=== PATIENT | female | born 1985 | race Caucasian/White ===

== ENCOUNTER 2024-01-23 12:35 | Emergency (ER) | payer OTHER ==
[~2024-01-23] VITALS: Ht 165.1 cm; Wt 135.5 kg
[~2024-01-23 12:35] MED LIST: DECADRON 4MG TAB4 MG PO; DOXYCYCLINE 10100 MG PO; IPRATROPIUM BROM3 M1 IH; MEDROL 4MG DOSPA4 MG PO; MONODOX100 PO; NEB MC; NO HOME MEDICATIONS; NORCO 325 MG-101 TAB PO; PEPCID 20MG TAB20 MG PO; PERCOCET 325 MG1 TA2 PO; PHENERGAN 25 TA25 MG PO; PREDNISONE 20MG20 MG PO; PREVACID 15MG15 M1; PRINIVIL10 MG PO; PROAIR HFA0.09 MG/AC IH; PROZAC 20MG20 MG PO; RT ADVAIR 528 DISKUS IH; SINGULAIR 110 MG/TAB PO; TAMIFLU 75MG75 MG PO; TINACTIN1% TP; TUSS PO; VENTOLIN0.09 MG IH
[2024-01-23 12:38] VITALS: TEMP 98
[2024-01-23] MEDS ORDERED: Ondansetron 4 MG/2 ML VIAL IV ONE ×2 (13:15→14:00)
[2024-01-23] MEDS ORDERED: Ketorolac 30 MG/ML VIAL IV ONE (13:15)
[2024-01-23 13:25] LABS: BASO # 0.1 K/mm3 (0.0-0.2); BASO % 0.9 % (0.0-2.0); EOS # 0.6 K/mm3 (0.0-0.7); EOS % 6.5 % (0.0-4.0); GRAN # 5.5 K/mm3 (1.4-6.5); GRAN % 62.1 % (42.2-75.2); HEMATOCRIT 43.1 % (37.0-47.0); HEMOGLOBIN 14.7 g/dl (12.5-16.0); LYMPH # 2.1 K/mm3 (1.2-3.4); LYMPH % 23.7 % (20.0-51.0); MEAN CELL VOLUME 95 fl (80.0-100.0); MEAN CORPUSCULAR HEMOGLOBIN 32 pg (27-31); MEAN CORPUSCULAR HGB CONC 34 g/dl (33.0-37.0); MEAN PLATELET VOLUME 11.4 fl (7.4-10.4); MONO # 0.6 K/mm3 (0.1-0.6); MONO % 6.3 % (1.7-9.3); PLATELET COUNT 186 K/mm3 (130-400); RED BLOOD COUNT 4.56 M/mm3 (4.10-5.30); REDCELL DISTRIBUTION WIDTH-CV 12.5 % (11.5-14.5)
[2024-01-23 13:44] LABS: ALBUMIN 3.3 gm/dL (3.5-5.0); BILIRUBIN,TOTAL 0.6 mg/dL (0.2-1.2); CALCIUM 9.8 mg/dL (8.4-10.2); CREATININE, serum 0.92 mg/dL (0.57-1.11); POTASSIUM 3.9 mmol/L (3.5-4.5); TOTAL PROTEIN 6.8 gm/dL (6.2-8.1)
[2024-01-23] MEDS ORDERED: NS 100 ML IV SCH (14:11)
[2024-01-23] MEDS ORDERED: Iohexol 300 - 100 ML VIAL IV ONE (14:11)
[2024-01-23] MEDS ORDERED: NS 1,000 ML IV ONE (14:30)
[2024-01-23] MEDS ORDERED: droPERidol 2.5 MG/ML 2 ML VIAL IV ONE (14:30)
[2024-01-23 15:36] LABS: COLLECTION METHOD CLEAN CATCH
[2024-01-23 15:44] LABS: PH 6.5 (5.0-8.5); URINE APPEARANCE CLEAR (CLEAR/HAZY); URINE BLOOD 2+ (NEGATIVE); URINE COLOR YELLOW (YELLOW); URINE GLUCOSE NEGATIVE (NEGATIVE); URINE KETONE NEGATIVE (NEGATIVE); URINE NITRATE NEGATIVE (NEGATIVE); URINE PROTEIN(semi-quant) NEGATIVE (NEGATIVE)
[2024-01-23 16:00] LABS: TRICYCLIC ANTIDEPRESS URINE NEGATIVE (NEGATIVE)
[2024-01-23] MEDS ORDERED: cefTRIAXone 1 G in Water For Injection,Sterile 10 ML IV ONE (16:00)
[2024-01-23] MEDS ORDERED: NORCO 325 MG-51 TAB PO (16:01)
[2024-01-23] MEDS ORDERED: CEPHALEXIN500 M1 PO (16:01)
[2024-01-23] MEDS ORDERED: ZOFRAN 4MG T4 MG/TAB PO (16:01)
[2024-01-23 16:24] VITALS: BP 121/52; PULSE 54
[2024-01-23] MEDS ORDERED: CIPRO 500MG TA500 MG PO (16:25)
== END 2024-01-23 16:24 | disposition home or self-care (01) ==
LOC: COL.ER 12:35
PROVIDERS: Physician Assistant
DX: N13.2 Hydronephrosis with renal and ureteral calculous obstruction (principal); E66.01 Morbid (severe) obesity due to excess calories; R74.01 Elevation of levels of liver transaminase levels; Z90.49 Acquired absence of other specified parts of digestive tract; Z87.891 Personal history of nicotine dependence; Z88.0 Allergy status to penicillin; Z88.1 Allergy status to other antibiotic agents; Z88.2 Allergy status to sulfonamides; Z91.040 Latex allergy status
CPT/HCPCS: J0696; J1790; J1885; J2405; J7030; Q9967

== ENCOUNTER 2024-07-22 19:04 | Emergency (ER) | payer OTHER ==
[~2024-07-22] VITALS: Ht 167.6 cm; Wt 139.0 kg
[~2024-07-22 19:04] MED LIST changes: +CEPHALEXIN500 M1 PO; +CIPRO 500MG TA500 MG PO; +NORCO 325 MG-51 TAB PO; +ZOFRAN 4MG T4 MG/TAB PO
[2024-07-22 19:14] VITALS: TEMP 98.3
[2024-07-22] MEDS ORDERED: Albuterol/Ipratropium 3 MG-0.5 MG/3 ML Neb Soln IH ONE (19:30)
[2024-07-22 20:59] LABS: ALBUMIN 3.4 g/dL (3.5-5.0); BILIRUBIN,TOTAL 1.3 mg/dL (0.2-1.2); CALCIUM 9.1 mg/dL (8.4-10.2); CREATININE, serum 0.86 mg/dL (0.57-1.11); POTASSIUM 3.9 mEq/L (3.5-4.5); TOTAL PROTEIN 8.9 g/dl (6.2-8.1)
[2024-07-22 21:07] LABS: TROPONIN-I 0.018 ng/mL (0.00-0.033)
[2024-07-22 22:04] LABS: BASO % 0.6 % (0.0-2.0); EOS # 0.4 K/mm3 (0.0-0.7); EOS % 5.8 % (0.0-4.0); GRAN # 4.1 K/mm3 (1.4-6.5); GRAN % 59.8 % (42.2-75.2); HEMOGLOBIN 13.8 g/dl (12.5-16.0); LYMPH # 1.8 K/mm3 (1.2-3.4); LYMPH % 26.7 % (20.0-51.0); MEAN CELL VOLUME 89 fl (80.0-100.0); MEAN CORPUSCULAR HEMOGLOBIN 32 pg (27-31); MEAN CORPUSCULAR HGB CONC 35 g/dl (33.0-37.0); MONO # 0.5 K/mm3 (0.1-0.6); MONO % 6.8 % (1.7-9.3); PLATELET COUNT 146 K/mm3 (130-400); RED BLOOD COUNT 4.36 M/mm3 (4.10-5.30); REDCELL DISTRIBUTION WIDTH-CV 12.6 % (11.5-14.5)
[2024-07-22] MEDS ORDERED: methylPREDNISolone Sod Succ 125 MG/2 ML VIAL IV ONE (22:30)
[2024-07-22] MEDS ORDERED: Albuterol/Ipratropium 3 MG-0.5 MG/3 ML Neb Soln IH SCH (22:30)
[2024-07-22] MEDS ORDERED: guaiFENesin/Codeine Oral Soln 100-10 MG/5 ML 5 ML UD PO ONE (23:15)
[2024-07-22] MEDS ORDERED: PREDNISONE20 MG PO (23:19)
[2024-07-22] MEDS ORDERED: ZYRTEC 10MG10 MG PO (23:20)
[2024-07-22] MEDS ORDERED: MEDROL 4MG DOSPA4 MG PO (23:34)
[2024-07-22 23:37] VITALS: BP 137/74; PULSE 76
== END 2024-07-22 23:35 | disposition home or self-care (01) ==
LOC: COL.ER 19:04
PROVIDERS: Nurse Practitioner Primary Care
DX: J45.901 Unspecified asthma with (acute) exacerbation (principal); J06.9 Acute upper respiratory infection, unspecified; Z87.891 Personal history of nicotine dependence; Z91.040 Latex allergy status; Z79.899 Other long term (current) drug therapy
CPT/HCPCS: J2919